=== PATIENT | male | born 1945 | race African-American/Black ===

== ENCOUNTER 2017-12-10 13:11 | Inpatient (IN) | payer MEDICARE, MEDICAID ==
[~2017-12-10] VITALS: Ht 180.3 cm; Wt 77.3 kg
[~2017-12-10 13:11] MED LIST: AMLO5TAB7 PO; AMOX-291 PO; CEFD300C37 PO; CYAN10005 PO; FAMO20TA7 PO; FLUT16SP NAS; IBUP-1222 PO; IBUP1TAB11 PO; LISI-167 PO; OMEP-110 PO; TAMS-11 PO; ZOLP-413 PO
[2017-12-10 13:53] LABS: BASOPHILS # (AUTO) 0.01 x10^3/uL (0-0.1); BASOPHILS % (AUTO) 0 % (0-1); EOSINOPHILS # (AUTO) 0.02 x10^3/uL (0-0.4); EOSINOPHILS % (AUTO) 0 % (1-7); LYMPHOCYTES # (AUTO) 0.27 x10^3/uL (1-3.4); LYMPHOCYTES % (AUTO) 4 % (22-44); MD NO; MEAN CORPUSCULAR HEMOGLOBIN 32.1 pg (27.5-34.5); MEAN CORPUSCULAR HGB CONC 34.1 g/dL (33.2-36.2); MEAN CORPUSCULAR VOLUME 94.3 fL (81-97); MEAN PLATELET VOLUME 8.2 fL (7.4-10.4); MONOCYTES # (AUTO) 0.28 x10^3/uL (0.2-0.8); MONOCYTES % (AUTO) 4 % (2-9); NEUTROPHILS # (AUTO) 6.43 x10^3/uL (1.8-6.8); NEUTROPHILS % (AUTO) 92 % (42-75); PLATELET COUNT 230 x10^3/uL (130-400); RED BLOOD COUNT 5.26 x10^6/uL (4.38-5.82); RED CELL DISTRIBUTION WIDTH 13.7 % (9.4-14.8)
[2017-12-10 14:02] LABS: ALANINE AMINOTRANSFERASE 25 U/L (12-78); ALBUMIN 3.7 g/dL (3.4-5.0); ANION GAP 5 mmol/L (5-15); CALCIUM 8.9 mg/dL (8.5-10.1); CHLORIDE 111 mmol/L (98-107)
[2017-12-10 14:05] LABS: ALKALINE PHOSPHATASE 106 U/L (45-117); BILIRUBIN,TOTAL 0.6 mg/dL (0.2-1.0); CREATININE 1.45 mg/dL (0.7-1.3); TOTAL PROTEIN 7.5 g/dL (6.4-8.2)
[2017-12-10] MEDS ORDERED: TAMS0.4C2 PO (15:45)
[2017-12-10 16:51] LABS: CULTURE INDICATED? YES; MICROSCOPIC INDICATED
[2017-12-10 17:16] LABS: CLOSTRIDIUM DIFFICILE ANTIGEN NEGATIVE; CLOSTRIDIUM DIFFICILE TOXIN NEGATIVE (Negative)
[2017-12-10] MEDS ORDERED: SODIUM CHLORIDE 0.9% 1,000 ML IV ONE (17:39)
[2017-12-10] MEDS ORDERED: SODIUM CHLORIDE 0.9% 1,000ML IVBOLUS ONE (18:00)
[2017-12-10] MEDS ORDERED: ONDANSETRON ODT 4 MG PO ONE (18:00)
[2017-12-10] MEDS ORDERED: SODIUM CHLORIDE FLUSH 10ML SYR IVF ONE (18:00)
[2017-12-10] MEDS ORDERED: SODIUM CHLORIDE FLUSH 10ML SYR IVF PRN (18:00)
[2017-12-10] MEDS ORDERED: CEFTRIAXONE 1,000 MG in SODIUM CHLORIDE 0.9% 50 ML IVPB ONE (18:00)
[2017-12-10] MEDS ORDERED: CEFTRIAXONE PMX 1GM/50ML 50 ML ONE (18:03)
[2017-12-10] MEDS ORDERED: ONDANSETRON ODT 4 MG ONE (18:03)
[2017-12-10] MEDS ORDERED: hydrALAzine 20 MG/ML, 1ML IVPush PRN (19:30)
[2017-12-10] MEDS ORDERED: ONDANSETRON ODT 4 MG PO PRN (19:30)
[2017-12-10] MEDS ORDERED: LIDODERM 5% PATCH TD PRN (19:30)
[2017-12-10] MEDS ORDERED: TEMAZEPAM 15 MG CAPSULE PO PRN (19:30)
[2017-12-10] MEDS ORDERED: DOCUSATE 100 MG CAPSULE PO PRN (19:30)
[2017-12-10 20:19] VITALS: BP 154/80
[2017-12-10] MEDS: SODIUM CHLORIDE 0.9% 1,000 ML IV SCH (20:26)
[2017-12-10] MEDS: ENOXAPARIN 40 MG/0.4 ML SQ SCH (20:26)
[2017-12-10] MEDS: ACETAMINOPHEN 325 MG TABLET PO PRN (20:32)
[2017-12-10] MEDS ORDERED: CEFTRIAXONE 1,000 MG in SODIUM CHLORIDE 0.9% 50 ML IVPB SCH (21:00)
[2017-12-10 21:07] VITALS: BP 154/80
[2017-12-11 01:26] VITALS: BP 105/60
[2017-12-11 05:43] LABS: ANION GAP 6 mmol/L (5-15); CALCIUM 8.1 mg/dL (8.5-10.1); CHLORIDE 113 mmol/L (98-107)
[2017-12-11 05:46] LABS: CREATININE 1.26 mg/dL (0.7-1.3)
[2017-12-11 05:47] LABS: BASOPHILS # (AUTO) 0.02 x10^3/uL (0-0.1); BASOPHILS % (AUTO) 1 % (0-1); EOSINOPHILS # (AUTO) 0.03 x10^3/uL (0-0.4); EOSINOPHILS % (AUTO) 1 % (1-7); LYMPHOCYTES # (AUTO) 0.56 x10^3/uL (1-3.4); LYMPHOCYTES % (AUTO) 15 % (22-44); MD NO; MEAN CORPUSCULAR HEMOGLOBIN 31.6 pg (27.5-34.5); MEAN CORPUSCULAR HGB CONC 33.8 g/dL (33.2-36.2); MEAN CORPUSCULAR VOLUME 93.6 fL (81-97); MEAN PLATELET VOLUME 8.7 fL (7.4-10.4); MONOCYTES % (AUTO) 11 % (2-9); NEUTROPHILS # (AUTO) 2.77 x10^3/uL (1.8-6.8); NEUTROPHILS % (AUTO) 73 % (42-75); PLATELET COUNT 188 x10^3/uL (130-400); RED BLOOD COUNT 4.23 x10^6/uL (4.38-5.82); RED CELL DISTRIBUTION WIDTH 13.6 % (9.4-14.8)
[2017-12-11] MEDS: SODIUM CHLORIDE 0.9% 1,000 ML IV SCH ×2 (05:55→16:53)
[2017-12-11 07:05] VITALS: BP 119/70
[2017-12-11] MEDS: TAMSULOSIN 0.4 MG CAP.ER.24H PO SCH (08:59)
[2017-12-11] MEDS: OMEPRAZOLE 20 MG CAPSULE.DR PO SCH (08:59)
[2017-12-11] MEDS: LISINOPRIL 10 MG TABLET PO SCH (09:00)
[2017-12-11] MEDS: AMLODIPINE 5 MG TABLET PO SCH (09:00)
[2017-12-11] MEDS: ACETAMINOPHEN 325 MG TABLET PO PRN (09:00)
[2017-12-11] MEDS: DOXYCYCLINE 100 MG in DEXTROSE 5% 250 ML IV SCH (12:54)
[2017-12-11 13:15] VITALS: BP 115/61
[2017-12-11] MEDS ORDERED: ALBUTEROL SULFATE 2.5 MG/3 ML NPPB PRN (13:30)
[2017-12-11] MEDS ORDERED: CEFTRIAXONE 1,000 MG IM SCH (17:00)
[2017-12-11 19:55] VITALS: BP 135/71
[2017-12-11] MEDS: ENOXAPARIN 40 MG/0.4 ML SQ SCH (20:07)
[2017-12-12] MEDS: SODIUM CHLORIDE 0.9% 1,000 ML IV SCH (00:19)
[2017-12-12] MEDS: DOXYCYCLINE 100 MG in DEXTROSE 5% 250 ML IV SCH ×2 (00:19→12:01)
[2017-12-12 01:31] VITALS: BP 131/66
[2017-12-12 05:07] LABS: ALBUMIN 2.6 g/dL (3.4-5.0); ANION GAP 7 mmol/L (5-15); CALCIUM 8.1 mg/dL (8.5-10.1); CHLORIDE 112 mmol/L (98-107)
[2017-12-12 05:13] LABS: ALANINE AMINOTRANSFERASE 15 U/L (12-78); ALKALINE PHOSPHATASE 73 U/L (45-117); BILIRUBIN,TOTAL 0.2 mg/dL (0.2-1.0); TOTAL PROTEIN 5.3 g/dL (6.4-8.2)
[2017-12-12 05:14] LABS: BASOPHILS # (AUTO) 0.01 x10^3/uL (0-0.1); BASOPHILS % (AUTO) 0 % (0-1); EOSINOPHILS # (AUTO) 0.11 x10^3/uL (0-0.4); EOSINOPHILS % (AUTO) 4 % (1-7); LYMPHOCYTES % (AUTO) 33 % (22-44); MD NO; MEAN CORPUSCULAR HGB CONC 34.3 g/dL (33.2-36.2); MEAN CORPUSCULAR VOLUME 93.2 fL (81-97); MEAN PLATELET VOLUME 8.5 fL (7.4-10.4); MONOCYTES # (AUTO) 0.61 x10^3/uL (0.2-0.8); MONOCYTES % (AUTO) 18 % (2-9); NEUTROPHILS # (AUTO) 1.48 x10^3/uL (1.8-6.8); NEUTROPHILS % (AUTO) 45 % (42-75); PLATELET COUNT 157 x10^3/uL (130-400); RED BLOOD COUNT 3.83 x10^6/uL (4.38-5.82); RED CELL DISTRIBUTION WIDTH 14.1 % (9.4-14.8)
[2017-12-12 07:05] VITALS: BP 180/65
[2017-12-12 07:57] VITALS: BP 149/78
[2017-12-12] MEDS: OMEPRAZOLE 20 MG CAPSULE.DR PO SCH (07:57)
[2017-12-12] MEDS: TAMSULOSIN 0.4 MG CAP.ER.24H PO SCH (07:57)
[2017-12-12] MEDS: AMLODIPINE 5 MG TABLET PO SCH (07:58)
[2017-12-12] MEDS: LISINOPRIL 10 MG TABLET PO SCH (07:58)
[2017-12-12] MEDS ORDERED: DOXY100T PO (12:26)
[2017-12-12] MEDS ORDERED: SULF1TAB24 PO (12:26)
[2017-12-12 12:45] VITALS: BP 144/70
[2017-12-12] MEDS ORDERED: SODIUM CHLORIDE 0.9% 1,000 ML IV SCH (19:29)
== END 2017-12-12 16:30 | disposition home or self-care (01) | DRG 689 ==
LOC: ED 17:37 → EDIP 17:59 → 3NW 19:30 → DCLOUNGE 12-12 16:21
PROVIDERS: ADMIT Internal Medicine; ATTEND Internal Medicine
DX: N39.0 Urinary tract infection, site not specified (principal); N17.0 Acute kidney failure with tubular necrosis; J44.0 Chronic obstructive pulmonary disease with (acute) lower respiratory infection; F17.210 Nicotine dependence, cigarettes, uncomplicated; I10 Essential (primary) hypertension; J20.9 Acute bronchitis, unspecified; E86.0 Dehydration; K52.9 Noninfective gastroenteritis and colitis, unspecified; K59.00 Constipation, unspecified; Z82.49 Family history of ischemic heart disease and other diseases of the circulatory system; Z82.5 Family history of asthma and other chronic lower respiratory diseases; Z83.3 Family history of diabetes mellitus
CPT/HCPCS: 36415; 71045; 80048; 80053; 81001; 83690; 85025; 87040; 87086; 87324; 89055; 93005; 94640; 96365; 99285; G0378; J0696; J1650; J7060; J7613; Q0162; J7030

== ENCOUNTER 2018-06-18 11:38 | Inpatient (IN) | payer MEDICARE, MEDICAID ==
[~2018-06-18] VITALS: Ht 180.3 cm; Wt 69.9 kg
[~2018-06-18 11:38] MED LIST changes: +AMLO-150 PO; -AMLO5TAB7 PO; +DOXY100T PO; +SULF1TAB24 PO; +TAMS0.4C2 PO
[2018-06-18] MEDS ORDERED: ASPIRIN 81 MG TABLET CHEW ONE (12:14)
--- NOTE | 2018-06-18 12:20 | NUR ---
Pt presents for increasing SOB, CP, and dizziness x several weeks. Much worse today. Cough with yellow sputum x 1 week.
[2018-06-18 12:28] LABS: BASOPHILS # (AUTO) 0.11 x10^3/uL (0-0.1); BASOPHILS % (AUTO) 2 % (0-1); EOSINOPHILS % (AUTO) 2 % (1-7); LYMPHOCYTES # (AUTO) 2.14 x10^3/uL (1-3.4); LYMPHOCYTES % (AUTO) 38 % (22-44); MD NO; MEAN CORPUSCULAR HEMOGLOBIN 32.4 pg (27.5-34.5); MEAN CORPUSCULAR VOLUME 95.4 fL (81-97); MEAN PLATELET VOLUME 8.6 fL (7.4-10.4); MONOCYTES # (AUTO) 0.58 x10^3/uL (0.2-0.8); MONOCYTES % (AUTO) 10 % (2-9); NEUTROPHILS # (AUTO) 2.69 x10^3/uL (1.8-6.8); NEUTROPHILS % (AUTO) 48 % (42-75); PLATELET COUNT 225 x10^3/uL (130-400); RED CELL DISTRIBUTION WIDTH 13.6 % (9.4-14.8)
[2018-06-18] MEDS ORDERED: NITROGLYCERIN SINGLE TAB 0.4 MG SL ONE (12:28)
[2018-06-18] MEDS ORDERED: ASPIRIN 81 MG TABLET CHEW PO ONE (12:30)
[2018-06-18] MEDS ORDERED: NITROGLYCERIN 0.4 MG BOTTLE (25 TABS) SL PRN ×2 (12:30→17:00)
[2018-06-18 12:42] LABS: ALBUMIN 4.1 g/dL (3.4-5.0); ANION GAP 5 mmol/L (5-15); CHLORIDE 111 mmol/L (98-107); CREATININE 1.43 mg/dL (0.7-1.3)
[2018-06-18 12:46] LABS: TROPONIN I < 0.015 ng/mL (0.000-0.045)
[2018-06-18] MEDS ORDERED: ACETAMINOPHEN 500 MG TABLET ONE (16:20)
[2018-06-18] MEDS ORDERED: SODIUM CHLORIDE 0.9% 1,000 ML IV SCH (16:39)
[2018-06-18] MEDS: NICOTINE 7 MG/24 HR PATCH.TD24 TD SCH (17:00)
[2018-06-18] MEDS ORDERED: ONDANSETRON 2MG/ML, 2ML IVPush PRN (17:00)
[2018-06-18] MEDS ORDERED: morphine SULFATE 10 MG/ML, 1ML IVPush PRN (17:00)
[2018-06-18] MEDS ORDERED: LABETALOL 5MG/ML, 20ML IVPush PRN (17:00)
[2018-06-18 17:26] LABS: INTERNATIONAL NORMALIZED RATIO 1.02 (0.93-1.1); PROTHROMBIN TIME 10.7 Seconds (9.6-11.5)
[2018-06-18] MEDS ORDERED: ACETAMINOPHEN 500 MG TABLET PO ONE (17:30)
[2018-06-18 17:31] LABS: TROPONIN I < 0.015 ng/mL (0.000-0.045)
[2018-06-18 18:53] LABS: RAPID INFLUENZA A Negative (Negative); RAPID INFLUENZA B Negative (Negative)
[2018-06-18 20:00] VITALS: BP 200/85
[2018-06-18] MEDS: AMOXICILLIN/CLAV 875-125MG TABLET PO SCH (20:26)
[2018-06-18] MEDS: SODIUM CHLORIDE 0.9% 1,000 ML IV SCH (20:27)
[2018-06-18] MEDS ORDERED: ATORVASTATIN 80 MG TABLET PO SCH (21:00)
[2018-06-18] MEDS ORDERED: DIPHENHYDRAMINE 25 MG CAPSULE ONE (22:20)
[2018-06-18] MEDS ORDERED: DIPHENHYDRAMINE 25 MG CAPSULE PO PRN (22:30)
[2018-06-18 22:32] VITALS: BP 200/85
[2018-06-18 22:42] VITALS: BP 124/67
[2018-06-18] MEDS: ACETAMINOPHEN 325 MG TABLET PO PRN (22:43)
[2018-06-18 23:13] LABS: TROPONIN I < 0.015 ng/mL (0.000-0.045)
[2018-06-19 01:16] VITALS: BP 111/67
[2018-06-19] MEDS: SODIUM CHLORIDE 0.9% 1,000 ML IV SCH ×2 (05:40→16:30)
[2018-06-19] MEDS: ACETAMINOPHEN 325 MG TABLET PO PRN (05:40)
[2018-06-19 05:48] LABS: BASOPHILS # (AUTO) 0.08 x10^3/uL (0-0.1); BASOPHILS % (AUTO) 1 % (0-1); EOSINOPHILS # (AUTO) 0.14 x10^3/uL (0-0.4); EOSINOPHILS % (AUTO) 3 % (1-7); LYMPHOCYTES # (AUTO) 1.88 x10^3/uL (1-3.4); LYMPHOCYTES % (AUTO) 36 % (22-44); MD NO; MEAN CORPUSCULAR HEMOGLOBIN 32.3 pg (27.5-34.5); MEAN CORPUSCULAR HGB CONC 34.2 g/dL (33.2-36.2); MEAN CORPUSCULAR VOLUME 94.6 fL (81-97); MEAN PLATELET VOLUME 8.8 fL (7.4-10.4); MONOCYTES # (AUTO) 0.54 x10^3/uL (0.2-0.8); MONOCYTES % (AUTO) 10 % (2-9); NEUTROPHILS # (AUTO) 2.63 x10^3/uL (1.8-6.8); NEUTROPHILS % (AUTO) 50 % (42-75); PLATELET COUNT 194 x10^3/uL (130-400); RED BLOOD COUNT 4.67 x10^6/uL (4.38-5.82); RED CELL DISTRIBUTION WIDTH 13.4 % (9.4-14.8)
[2018-06-19 05:49] LABS: CULTURE INDICATED? YES; MICROSCOPIC INDICATED
[2018-06-19 05:57] LABS: TROPONIN I < 0.015 ng/mL (0.000-0.045)
[2018-06-19 07:07] VITALS: BP 136/80
[2018-06-19] MEDS ORDERED: OMEPRAZOLE 20 MG CAPSULE.DR PO SCH (07:30)
[2018-06-19] MEDS: AMOXICILLIN/CLAV 875-125MG TABLET PO SCH (08:54)
[2018-06-19] MEDS ORDERED: AMLODIPINE 5 MG TABLET PO SCH (09:00)
[2018-06-19] MEDS ORDERED: TAMSULOSIN 0.4 MG CAP.ER.24H PO SCH (09:00)
[2018-06-19] MEDS ORDERED: ASPIRIN 81 MG TABLET CHEW PO SCH (09:00)
[2018-06-19] MEDS ORDERED: LISINOPRIL 10 MG TABLET PO SCH (09:00)
[2018-06-19] MEDS ORDERED: ASPI-515 PO (11:28)
[2018-06-19] MEDS ORDERED: LISI-167 PO (11:28)
[2018-06-19] MEDS ORDERED: CEFD300C37 PO (11:32)
[2018-06-19] MEDS ORDERED: SODIUM CHLORIDE 0.9% 1,000 ML IV SCH (16:39)
[2018-06-19] MEDS: NICOTINE 7 MG/24 HR PATCH.TD24 TD SCH (17:00)
== END 2018-06-19 18:34 | disposition home or self-care (01) | DRG 302 ==
LOC: ED 13:59 → EDIP 14:00 → ED 14:14 → 5SO 19:51
PROVIDERS: ADMIT Internal Medicine; ATTEND Internal Medicine
DX: I25.10 Atherosclerotic heart disease of native coronary artery without angina pectoris (principal); N17.0 Acute kidney failure with tubular necrosis; N39.0 Urinary tract infection, site not specified; J20.9 Acute bronchitis, unspecified; I12.9 Hypertensive chronic kidney disease with stage 1 through stage 4 chronic kidney disease, or unspecified chronic kidney disease; N18.9 Chronic kidney disease, unspecified; K29.70 Gastritis, unspecified, without bleeding; F17.210 Nicotine dependence, cigarettes, uncomplicated; Z91.19 Patient's noncompliance with other medical treatment and regimen; Z87.440 Personal history of urinary (tract) infections
CPT/HCPCS: 36415; 71045; 80048; 81001; 82040; 83735; 83880; 84100; 84484; 85025; 85379; 85610; 87070; 87086; 87205; 87400; 93005; 93306; G0378; J7030; Q0163

== ENCOUNTER 2018-08-20 10:45 | Observation (INO) | payer MEDICARE, MEDICAID ==
[~2018-08-20] VITALS: Ht 180.3 cm; Wt 70.9 kg
[~2018-08-20 10:45] MED LIST changes: +ASPI-515 PO
--- NOTE | 2018-08-20 11:12 | NUR ---
PT TO ED FOR SYNCOPAL EPISODE TODAY WHEN HE BENT OVER TO DRY OFF LEGS AFTER SHOWER. PT DENIES HITTING HEAD. PT REMEMBERS WAKING UP SITTING AGAINST BATHTUB. PT CONNECTED TO MONITORS. VSS. AWAITING EDMD ASSESSMENT.
[2018-08-20] MEDS ORDERED: SODIUM CHLORIDE FLUSH 10ML SYR IVF ONE (11:30)
[2018-08-20 11:38] LABS: BASOPHILS # (AUTO) 0.08 x10^3/uL (0-0.1); BASOPHILS % (AUTO) 2 % (0-1); EOSINOPHILS # (AUTO) 0.09 x10^3/uL (0-0.4); EOSINOPHILS % (AUTO) 2 % (1-7); LYMPHOCYTES # (AUTO) 1.57 x10^3/uL (1-3.4); LYMPHOCYTES % (AUTO) 35 % (22-44); MD NO; MEAN CORPUSCULAR HEMOGLOBIN 32.5 pg (27.5-34.5); MEAN CORPUSCULAR HGB CONC 33.5 g/dL (33.2-36.2); MEAN CORPUSCULAR VOLUME 96.9 fL (81-97); MEAN PLATELET VOLUME 8.8 fL (7.4-10.4); MONOCYTES # (AUTO) 0.44 x10^3/uL (0.2-0.8); MONOCYTES % (AUTO) 10 % (2-9); NEUTROPHILS # (AUTO) 2.26 x10^3/uL (1.8-6.8); NEUTROPHILS % (AUTO) 51 % (42-75); PLATELET COUNT 205 x10^3/uL (130-400)
--- NOTE | 2018-08-20 11:42 | NUR ---
PT RESTING IN ROOM. VSS. IV ESTABLISHED. AWAITING RESULTS. CALL LIGHT WITHIN REACH.
[2018-08-20 11:49] LABS: ALBUMIN 3.8 g/dL (3.4-5.0); ANION GAP 6 mmol/L (5-15); CALCIUM 8.8 mg/dL (8.5-10.1); CHLORIDE 111 mmol/L (98-107); CREATININE 1.43 mg/dL (0.7-1.3); INTERNATIONAL NORMALIZED RATIO 0.98 (0.93-1.1); PROTHROMBIN TIME 10.3 Seconds (9.6-11.5)
[2018-08-20 11:53] LABS: TROPONIN I < 0.015 ng/mL (0.000-0.045)
--- NOTE | 2018-08-20 12:14 | NUR ---
all results back at this time. chart up for recheck.
--- NOTE | 2018-08-20 12:22 | NUR ---
PT RESTING IN ROOM. VSS. NO NEEDS EXPRESSED. CALL LIGHT WITHIN REACH. AWAITING RECHECK.
--- NOTE | 2018-08-20 12:25 | NUR ---
edmd to bs to update on poc. plan to admit.
[2018-08-20] MEDS ORDERED: HEPARIN 5,000 UNITS/ML, 1ML ONE (13:27)
[2018-08-20] MEDS ORDERED: ACETAMINOPHEN 325 MG TABLET PO PRN (13:30)
[2018-08-20] MEDS ORDERED: LABETALOL 5MG/ML, 20ML IVPush PRN (13:30)
[2018-08-20] MEDS ORDERED: morphine SULFATE 10 MG/ML, 1ML IVPush PRN (13:30)
[2018-08-20] MEDS ORDERED: OXYcodone IR 5MG TABLET PO PRN (13:30)
[2018-08-20] MEDS ORDERED: NITROGLYCERIN 0.4 MG/SPRAY SL PRN (13:30)
[2018-08-20] MEDS ORDERED: NITROGLYCERIN 0.4 MG BOTTLE (25 TABS) SL PRN ×2 (13:30)
[2018-08-20] MEDS: SODIUM CHLORIDE 0.9% 1,000 ML IV SCH ×2 (13:31→23:28)
[2018-08-20] MEDS ORDERED: hydrALAzine 20 MG/ML, 1ML ONE (13:31)
[2018-08-20] MEDS: hydrALAzine 20 MG/ML, 1ML IVPush PRN (13:32)
[2018-08-20] MEDS: HEPARIN 5,000 UNITS/ML, 1ML SQ SCH ×2 (13:32→21:21)
--- NOTE | 2018-08-20 13:35 | NUR ---
PT RESTING IN ROOM. HTN, 182/86. ALL OTHER VSS ON RA. PT MEDICATED PER MAR. IVF STARTED. PT MEDICATED FOR HTN. PLAN TO ADMIT. AWAITING ROOM ASSIGNMENT.
[2018-08-20] MEDS ORDERED: ALBUTEROL/IPRATROPIUM 2.5MG/0.5MG, 3 ML ONE (13:45)
[2018-08-20] MEDS ORDERED: ALBUTEROL/IPRATROPIUM 2.5MG/0.5MG, 3 ML NPPB PRN (14:30)
[2018-08-20 14:41] VITALS: BP 157/73
[2018-08-20 19:16] LABS: MICROSCOPIC AUTO
[2018-08-20 19:22] LABS: CULTURE INDICATED? YES
[2018-08-20 19:28] VITALS: BP 168/80
[2018-08-21] VITALS (7 sets, daily range): BP systolic 159–195; BP diastolic 67–105
[2018-08-21 00:01] LABS: TROPONIN I 0.021 ng/mL (0.000-0.045)
[2018-08-21 04:41] LABS: ANION GAP 6 mmol/L (5-15); CALCIUM 8.6 mg/dL (8.5-10.1); CHLORIDE 113 mmol/L (98-107)
[2018-08-21 04:50] LABS: THYROID STIMULATING HORMONE 0.839 mIU/L (0.358-3.740)
[2018-08-21] MEDS: HEPARIN 5,000 UNITS/ML, 1ML SQ SCH ×3 (05:21→20:18)
[2018-08-21 06:39] LABS: MEAN CORPUSCULAR HEMOGLOBIN 32.1 pg (27.5-34.5); MEAN CORPUSCULAR HGB CONC 32.9 g/dL (33.2-36.2); MEAN CORPUSCULAR VOLUME 97.4 fL (81-97); MEAN PLATELET VOLUME 8.5 fL (7.4-10.4); PLATELET COUNT 181 x10^3/uL (130-400); RED BLOOD COUNT 4.55 x10^6/uL (4.38-5.82)
[2018-08-21 08:00] LABS: MD SCAN
[2018-08-21 08:02] LABS: BASOPHILS # (AUTO) 0.06 x10^3/uL (0-0.1); BASOPHILS % (AUTO) 1 % (0-1); EOSINOPHILS # (AUTO) 0.11 x10^3/uL (0-0.4); EOSINOPHILS % (AUTO) 2 % (1-7); LYMPHOCYTES # (AUTO) 1.69 x10^3/uL (1-3.4); LYMPHOCYTES % (AUTO) 30 % (22-44); MONOCYTES # (AUTO) 0.52 x10^3/uL (0.2-0.8); MONOCYTES % (AUTO) 9 % (2-9); NEUTROPHILS % (AUTO) 58 % (42-75)
[2018-08-21] MEDS: NICOTINE 14MG/24 HR PATCH.TD24 TD SCH (08:23)
[2018-08-21] MEDS: SODIUM CHLORIDE 0.9% 1,000 ML IV SCH (13:49)
[2018-08-21] MEDS: hydrALAzine 20 MG/ML, 1ML IVPush PRN (16:51)
[2018-08-21] MEDS: CYANOCOBALAMIN 1,000 MCG/ML, 1ML IM SCH (17:53)
[2018-08-21] MEDS: LISINOPRIL 10 MG TABLET PO SCH (20:18)
[2018-08-22] MEDS: SODIUM CHLORIDE 0.9% 1,000 ML IV SCH (00:18)
[2018-08-22 01:53] VITALS: BP 162/87
[2018-08-22 05:23] LABS: ANION GAP 10 mmol/L (5-15); CALCIUM 8.5 mg/dL (8.5-10.1); CHLORIDE 111 mmol/L (98-107); CREATININE 1.07 mg/dL (0.7-1.3)
[2018-08-22] MEDS: HEPARIN 5,000 UNITS/ML, 1ML SQ SCH ×2 (06:03→14:28)
[2018-08-22 08:00] VITALS: BP 144/63
[2018-08-22] MEDS: CYANOCOBALAMIN 1,000 MCG/ML, 1ML IM SCH (09:35)
[2018-08-22] MEDS: LISINOPRIL 10 MG TABLET PO SCH (09:35)
[2018-08-22] MEDS: NICOTINE 14MG/24 HR PATCH.TD24 TD SCH (09:35)
[2018-08-22] MEDS ORDERED: TAMSULOSIN 0.4 MG CAP.ER.24H PO SCH (11:00)
[2018-08-22] MEDS ORDERED: FLUTICASONE NASAL SPRAY 16GM NAS SCH (11:00)
[2018-08-22] MEDS ORDERED: SODIUM CHLORIDE NASAL SPRAY 45ML BOTTLE NAS SCH (11:00)
[2018-08-22] MEDS ORDERED: AMOXICILLIN 500 MG CAPSULE PO SCH (11:00)
[2018-08-22] MEDS ORDERED: CYAN10002 IM (15:32)
[2018-08-22] MEDS ORDERED: TAMS-11 PO (15:32)
[2018-08-22] MEDS ORDERED: AMLO-150 PO (15:32)
[2018-08-22] MEDS ORDERED: LISI-167 PO (15:32)
[2018-08-22] MEDS ORDERED: AMOX-291 PO (15:32)
[2018-08-22] MEDS ORDERED: SODI44SP NAS (15:32)
[2018-08-22] MEDS ORDERED: FLUT16SP NAS (15:32)
[2018-08-22] MEDS ORDERED: AMLODIPINE 5 MG TABLET PO SCH (21:00)
== END 2018-08-22 17:18 | disposition home or self-care (01) ==
LOC: ED 13:08 → EDIP 13:11 → 4WST 14:08 → DCLOUNGE 08-22 17:05
PROVIDERS: ADMIT Internal Medicine; ATTEND Internal Medicine
DX: R55 Syncope and collapse (principal); R53.83 Other fatigue; R51 Headache; R42 Dizziness and giddiness; R07.89 Other chest pain; I10 Essential (primary) hypertension; R06.00 Dyspnea, unspecified; R31.0 Gross hematuria; D75.89 Other specified diseases of blood and blood-forming organs; E53.8 Deficiency of other specified B group vitamins; K86.89 Other specified diseases of pancreas; R33.8 Other retention of urine; N17.9 Acute kidney failure, unspecified; J44.9 Chronic obstructive pulmonary disease, unspecified; N40.1 Benign prostatic hyperplasia with lower urinary tract symptoms; D35.00 Benign neoplasm of unspecified adrenal gland; I27.20 Pulmonary hypertension, unspecified; F17.210 Nicotine dependence, cigarettes, uncomplicated; Z91.14 Patient's other noncompliance with medication regimen
CPT/HCPCS: 36415; 70450; 71045; 76770; 78582; 80048; 81001; 82040; 82533; 82607; 83735; 84443; 84484; 85025; 85610; 85730; 87086; 93005; 93308; 93321; 93325; 96361; 96372; 96374; 96376; 97162; 97166; 99284; A9540; A9558; C9898; G0378; J0360; J1644; J3420; J7030

== ENCOUNTER 2018-09-29 10:38 | Emergency (ER) | payer MEDICARE, MEDICAID ==
[~2018-09-29] VITALS: Ht 180.3 cm; Wt 71.7 kg
[~2018-09-29 10:38] MED LIST changes: +CYAN10002 IM; -FLUT16SP NAS; +FLUT16SP24 NAS; +SODI44SP NAS
--- NOTE | 2018-09-29 11:17 | NUR ---
[employer] MANAGER: PT TO ROOM FROM [facility]
[2018-09-29 12:00] LABS: BASOPHILS # (AUTO) 0.13 x10^3/uL (0-0.1); BASOPHILS % (AUTO) 3 % (0-1); EOSINOPHILS # (AUTO) 0.17 x10^3/uL (0-0.4); EOSINOPHILS % (AUTO) 4 % (1-7); LYMPHOCYTES # (AUTO) 1.41 x10^3/uL (1-3.4); LYMPHOCYTES % (AUTO) 34 % (22-44); MD NO; MEAN CORPUSCULAR HEMOGLOBIN 32.9 pg (27.5-34.5); MEAN CORPUSCULAR HGB CONC 33.5 g/dL (33.2-36.2); MEAN CORPUSCULAR VOLUME 98.1 fL (81-97); MEAN PLATELET VOLUME 8.6 fL (7.4-10.4); MONOCYTES % (AUTO) 12 % (2-9); NEUTROPHILS # (AUTO) 1.89 x10^3/uL (1.8-6.8); NEUTROPHILS % (AUTO) 46 % (42-75); PLATELET COUNT 182 x10^3/uL (130-400); RED BLOOD COUNT 4.65 x10^6/uL (4.38-5.82); RED CELL DISTRIBUTION WIDTH 13.4 % (9.4-14.8)
[2018-09-29] MEDS ORDERED: SODIUM CHLORIDE FLUSH 10ML SYR IVF ONE (12:00)
--- NOTE | 2018-09-29 12:05 | NUR ---
ASSUMED CARE OF PT AT THIS TIME. THIS IS A 72 YO MALE WHO PRESENTS TO THE ER C/O SYNCOPAL EPISODES X 2 YESTERDAY AND HITTING HEAD ON COFFEE TABLE WITH THE SECOND EPISODE. PT CURRENTLY DENIES DIZZINESS OR CP. PT AO X 4. SKIN WARM AND DRY. RESP EVEN AND UNLABORED. PT ON CONT BP, CARDIAC AND O2 MONITORS. BBB NOTED ON CRESTER, RATE 50'S-60'S. PT DENIES PAIN/NEEDS AT THIS TIME. CALL LIGHT WITHIN REACH. WILL CONT TO MONITOR PT.
[2018-09-29 12:09] LABS: ALBUMIN 3.8 g/dL (3.4-5.0); ANION GAP 4 mmol/L (5-15); CALCIUM 9.1 mg/dL (8.5-10.1); CHLORIDE 113 mmol/L (98-107); CREATININE 1.41 mg/dL (0.7-1.3)
[2018-09-29 12:13] LABS: TROPONIN I < 0.015 ng/mL (0.000-0.045)
--- NOTE | 2018-09-29 13:11 | NUR ---
PT CURRENTLY RESTING ON GURNEY. NAD NOTED. SKIN WARM AND DRY. RESP EVEN AND UNLABORED. PT AWARE THAT WE ARE WAITING FOR LAB/IMAGING RESULTS. CALL LIGHT WITHIN REACH. WILL CONT TO MONITOR PT.
--- NOTE | 2018-09-29 14:33 | NUR ---
PT STEADY UPON AMBULATION AROUND UNIT AND TO RESTROOM. PT DENIES DIZZINESS OR SOB. PT AO X 4. SKIN WARM AND DRY. RESP EVEN AND UNLABORED. PT ASSISTED BACK TO [place]. PT ON CONT BP, CARDIAC AND O2 MONITORS. CALL LIGHT WITHIN REACH. WILL CONT TO MONITOR PT.
[2018-09-29 14:59] VITALS: BP 158/79
== END 2018-09-29 15:03 | disposition home or self-care (01) ==
LOC: ED 11:54
DX: R55 Syncope and collapse (principal); I10 Essential (primary) hypertension; F17.210 Nicotine dependence, cigarettes, uncomplicated
CPT/HCPCS: 36415; 71045; 80048; 82040; 84484; 85025; 93005; 99284

== ENCOUNTER 2018-10-22 13:42 | Inpatient (IN) | payer MEDICARE, MEDICAID ==
[~2018-10-22] VITALS: Ht 180.3 cm; Wt 75.2 kg
[2018-11-03 07:40] VITALS: BP 158/80
== END 2018-11-03 13:28 | disposition home or self-care (01) | DRG 908 ==
LOC: ED 16:04 → EDIP 17:28 → 4EST 18:20 → 5SO 10-25 12:57
PROVIDERS: ADMIT Internal Medicine; ATTEND Internal Medicine
PROC: 0T9B70Z Drainage of Bladder with Drainage Device, Via Natural or Artificial Opening (ICD-10-PCS; 2018-10-22)
PROC: 4A023N7 Measurement of Cardiac Sampling and Pressure, Left Heart, Percutaneous Approach (ICD-10-PCS; 2018-10-25)
PROC: B2111ZZ Fluoroscopy of Multiple Coronary Arteries using Low Osmolar Contrast (ICD-10-PCS; 2018-10-25)
PROC: B2151ZZ Fluoroscopy of Left Heart using Low Osmolar Contrast (ICD-10-PCS; 2018-10-25)
PROC: 02H63JZ Insertion of Pacemaker Lead into Right Atrium, Percutaneous Approach (ICD-10-PCS; principal; 2018-10-28)
PROC: 0JH606Z Insertion of Pacemaker, Dual Chamber into Chest Subcutaneous Tissue and Fascia, Open Approach (ICD-10-PCS; 2018-10-28)
PROC: 02HK3JZ Insertion of Pacemaker Lead into Right Ventricle, Percutaneous Approach (ICD-10-PCS; 2018-10-28)
PROC: 02WA3MZ Revision of Cardiac Lead in Heart, Percutaneous Approach (ICD-10-PCS; 2018-10-29)
PROC: 0W9930Z Drainage of Right Pleural Cavity with Drainage Device, Percutaneous Approach (ICD-10-PCS; 2018-10-30)
DX: K91.872 Postprocedural seroma of a digestive system organ or structure following a digestive system procedure (principal); I50.30 Unspecified diastolic (congestive) heart failure; J94.8 Other specified pleural conditions; J93.9 Pneumothorax, unspecified; I25.119 Atherosclerotic heart disease of native coronary artery with unspecified angina pectoris; I45.10 Unspecified right bundle-branch block; I49.8 Other specified cardiac arrhythmias; G47.00 Insomnia, unspecified; R33.8 Other retention of urine; Y92.098 Other place in other non-institutional residence as the place of occurrence of the external cause; N50.1 Vascular disorders of male genital organs; D35.00 Benign neoplasm of unspecified adrenal gland; F17.210 Nicotine dependence, cigarettes, uncomplicated; G89.18 Other acute postprocedural pain; I11.0 Hypertensive heart disease with heart failure; J44.9 Chronic obstructive pulmonary disease, unspecified; J98.2 Interstitial emphysema; K86.89 Other specified diseases of pancreas; N30.90 Cystitis, unspecified without hematuria; K83.8 Other specified diseases of biliary tract; R33.9 Retention of urine, unspecified; N40.1 Benign prostatic hyperplasia with lower urinary tract symptoms; Z83.3 Family history of diabetes mellitus; Z91.19 Patient's noncompliance with other medical treatment and regimen; Z79.899 Other long term (current) drug therapy; Z82.5 Family history of asthma and other chronic lower respiratory diseases; Z84.89 Family history of other specified conditions; Z82.49 Family history of ischemic heart disease and other diseases of the circulatory system; Z71.6 Tobacco abuse counseling
CPT/HCPCS: 32557; 33208; 33215; 36415; 70553; 71045; 71046; 71275; 74022; 74174; 74176; 74177; 76857; 80048; 80053; 80061; 81001; 82040; 82088; 82533; 83690; 83735; 83835; 83880; 84484; 85025; 87086; 93005; 93458; 96374; 96375; 99156; 99157; 99285; A9585; C1760; C1769; C1779; C1785; C1892; C1894; G0378; J0583; J0690; J0696; J1170; J1644; J1650; J1885; J2250; J2405; J3010; Q0162; Q9967; C1729; J2270; J2310; J7030

== ENCOUNTER 2019-01-07 08:49 | Inpatient (IN) | payer MEDICAID, MEDICARE ==
[~2019-01-07] VITALS: Ht 180.3 cm; Wt 68.7 kg
[~2019-01-07 08:49] MED LIST changes: +CYAN-27 PO; -CYAN10005 PO
[2019-01-07] MEDS ORDERED: ONDANSETRON 2MG/ML, 2ML ONE (09:19)
[2019-01-07] MEDS ORDERED: ASPIRIN 81 MG TABLET CHEW ONE (09:19)
[2019-01-07] MEDS ORDERED: MORPHINE SULFATE 4 MG/ML, 1ML ONE ×2 (09:20→10:22)
[2019-01-07] MEDS: MORPHINE SULFATE 4 MG/ML, 1ML IVPush PRN ×2 (09:22→10:23)
[2019-01-07 09:29] LABS: BASOPHILS # (AUTO) 0.03 x10^3/uL (0-0.1); BASOPHILS % (AUTO) 1 % (0-1); EOSINOPHILS # (AUTO) 0.09 x10^3/uL (0-0.4); EOSINOPHILS % (AUTO) 2 % (1-7); LYMPHOCYTES # (AUTO) 1.56 x10^3/uL (1-3.4); LYMPHOCYTES % (AUTO) 32 % (22-44); MD NO; MEAN CORPUSCULAR HEMOGLOBIN 32.4 pg (27.5-34.5); MEAN CORPUSCULAR HGB CONC 33.5 g/dL (33.2-36.2); MEAN CORPUSCULAR VOLUME 96.7 fL (81-97); MEAN PLATELET VOLUME 8.2 fL (7.4-10.4); MONOCYTES # (AUTO) 0.55 x10^3/uL (0.2-0.8); MONOCYTES % (AUTO) 12 % (2-9); NEUTROPHILS # (AUTO) 2.57 x10^3/uL (1.8-6.8); NEUTROPHILS % (AUTO) 54 % (42-75); PLATELET COUNT 165 x10^3/uL (130-400); RED BLOOD COUNT 4.86 x10^6/uL (4.38-5.82); RED CELL DISTRIBUTION WIDTH 14.6 % (9.4-14.8)
[2019-01-07] MEDS ORDERED: SODIUM CHLORIDE FLUSH 10ML SYR IVF ONE (09:30)
[2019-01-07] MEDS ORDERED: ASPIRIN 81 MG TABLET CHEW PO ONE (09:30)
[2019-01-07] MEDS ORDERED: ONDANSETRON 2MG/ML, 2ML IVPush ONE (09:30)
--- NOTE | 2019-01-07 09:32 | NUR ---
PT TO ED WITH SOB/CP X5D, PT HAD RECENT HERNIA SURGERY IN 09/2018 AND PACEMAKER PLACEMENT. IV ESTABLISHED AND PT MEDICATED PER MAY. PT ON MONITIR, CALL LIGHT WITHIN REACH. LABS/RAD PENDING.
[2019-01-07 09:40] LABS: ALBUMIN 3.9 g/dL (3.4-5.0); ANION GAP 5 mmol/L (5-15); CALCIUM 8.6 mg/dL (8.5-10.1); CHLORIDE 109 mmol/L (98-107); CREATININE 1.32 mg/dL (0.7-1.3)
[2019-01-07 09:44] LABS: TROPONIN I < 0.015 ng/mL (0.000-0.045)
--- NOTE | 2019-01-07 10:18 | NUR ---
PT RESTING IN GURNEY, STATES HE FEELS BETTER AFTER MEDICATION. CTA ORDERED, PENDING
--- NOTE | 2019-01-07 10:48 | NUR ---
PT RETURNED FROM CT
[2019-01-07] MEDS ORDERED: OMNIPAQUE 350 MG/ML, 100ML BOTTLE ONE (10:56)
--- NOTE | 2019-01-07 11:50 | NUR ---
PT TO BE ADMITTED, AWAITNG ADMIT ORDERS. NO NEEDS AT THIS TIME, STATES RELIEF FROM PAIN AFTER MEDICATION.
[2019-01-07] MEDS: SODIUM CHLORIDE 0.9% 1,000 ML IV SCH ×2 (12:34→15:39)
--- NOTE | 2019-01-07 12:40 | NUR ---
ADMITTING MD AT BEDSIDE. PT RESTING IN [facility] ON MONITOR, NO NEEDS AT THIS TIME. AWAITING BED ASSIGNMENT
[2019-01-07] MEDS ORDERED: BISACODYL 10 MG SUPP PR PRN (13:00)
[2019-01-07] MEDS ORDERED: NITROGLYCERIN 0.4 MG BOTTLE (25 TABS) SL PRN (13:00)
[2019-01-07] MEDS ORDERED: POLYETHYLENE GLYCOL 17 GM PACKET PO PRN (13:00)
[2019-01-07] MEDS ORDERED: ONDANSETRON ODT 4 MG PO PRN (13:00)
[2019-01-07] MEDS ORDERED: ONDANSETRON 2MG/ML, 2ML IVPush PRN (13:00)
[2019-01-07] MEDS ORDERED: hydrALAzine 20 MG/ML, 1ML IVPush PRN (13:00)
[2019-01-07] MEDS ORDERED: LABETALOL 5MG/ML, 20ML IVPush PRN (13:00)
--- NOTE | 2019-01-07 13:42 | NUR ---
IVF STARTED AND PT GIVEN COFFEE PER REQUEST. PT ON TELE HOLD IN ED. DIET TRAY ORDERED.
--- NOTE | 2019-01-07 14:10 | NUR ---
TASK RN: PT RESTING ON GURNEY. NADN. LYNN.
--- NOTE | 2019-01-07 14:32 | NUR ---
TASK RN: REPORT GIVEN TO REKHA RAI RN. ALL QUESTIONS ANSWERED. AWAITING PT TRANSPORT.
[2019-01-07 14:57] VITALS: BP 173/99
[2019-01-07 15:27] LABS: TROPONIN I < 0.015 ng/mL (0.000-0.045)
[2019-01-07] MEDS: TAMSULOSIN 0.4 MG CAP.ER.24H PO SCH (15:38)
[2019-01-07] MEDS: HEPARIN 5,000 UNITS/ML, 1ML SQ SCH ×2 (15:38→23:35)
[2019-01-07] MEDS ORDERED: ALBUTEROL SULFATE 2.5 MG/3 ML NPPB SCH (16:30)
[2019-01-07 16:34] VITALS: BP 148/87
[2019-01-07] MEDS: ACETAMINOPHEN 325 MG TABLET PO PRN ×2 (16:35→21:06)
[2019-01-07 18:49] VITALS: BP 119/71
[2019-01-07] MEDS: ALBUTEROL SULFATE 2.5 MG/3 ML NPPB SCH (20:37)
[2019-01-07] MEDS: BUDESONIDE 0.5 MG/2 ML INHA NPPB SCH (20:37)
[2019-01-07] MEDS: DOCUSATE 100 MG CAPSULE PO SCH (20:55)
[2019-01-07] MEDS: AMLODIPINE 5 MG TABLET PO SCH (21:06)
[2019-01-07 21:33] LABS: CULTURE INDICATED? YES; MICROSCOPIC INDICATED
[2019-01-07 21:53] LABS: TROPONIN I 0.017 ng/mL (0.000-0.045)
[2019-01-08 00:44] VITALS: BP 125/76
[2019-01-08] MEDS: ALBUTEROL SULFATE 2.5 MG/3 ML NPPB SCH ×4 (03:00→21:00)
[2019-01-08 06:04] LABS: BASOPHILS # (AUTO) 0.09 x10^3/uL (0-0.1); BASOPHILS % (AUTO) 2 % (0-1); EOSINOPHILS # (AUTO) 0.08 x10^3/uL (0-0.4); EOSINOPHILS % (AUTO) 2 % (1-7); LYMPHOCYTES % (AUTO) 32 % (22-44); MD NO; MEAN CORPUSCULAR HEMOGLOBIN 32.9 pg (27.5-34.5); MEAN CORPUSCULAR HGB CONC 33.4 g/dL (33.2-36.2); MEAN CORPUSCULAR VOLUME 98.4 fL (81-97); MONOCYTES % (AUTO) 10 % (2-9); NEUTROPHILS # (AUTO) 2.67 x10^3/uL (1.8-6.8); NEUTROPHILS % (AUTO) 54 % (42-75); PLATELET COUNT 149 x10^3/uL (130-400); RED BLOOD COUNT 4.43 x10^6/uL (4.38-5.82); RED CELL DISTRIBUTION WIDTH 14.5 % (9.4-14.8)
[2019-01-08 06:12] LABS: CHLORIDE 110 mmol/L (98-107)
[2019-01-08 06:27] LABS: ANION GAP 5 mmol/L (5-15); CALCIUM 8.9 mg/dL (8.5-10.1); CREATININE 1.19 mg/dL (0.7-1.3)
[2019-01-08 07:56] VITALS: BP 157/84
[2019-01-08] MEDS: DOCUSATE 100 MG CAPSULE PO SCH ×2 (08:21→20:43)
[2019-01-08] MEDS: TAMSULOSIN 0.4 MG CAP.ER.24H PO SCH (08:21)
[2019-01-08] MEDS: AMLODIPINE 5 MG TABLET PO SCH ×2 (08:21→20:43)
[2019-01-08] MEDS: HEPARIN 5,000 UNITS/ML, 1ML SQ SCH ×3 (08:21→23:30)
[2019-01-08] MEDS: ASPIRIN 81 MG TABLET EC PO SCH (08:22)
[2019-01-08] MEDS: ACETAMINOPHEN 325 MG TABLET PO PRN ×2 (09:17→20:43)
[2019-01-08] MEDS: BUDESONIDE 0.5 MG/2 ML INHA NPPB SCH ×2 (09:45→21:00)
[2019-01-08 12:44] VITALS: BP 131/76
[2019-01-08 19:01] VITALS: BP 149/74
[2019-01-08] MEDS: ATORVASTATIN 40 MG TABLET PO SCH (20:43)
[2019-01-09 00:38] VITALS: BP 153/81
[2019-01-09] MEDS: ACETAMINOPHEN 325 MG TABLET PO PRN ×3 (00:51→21:07)
[2019-01-09] MEDS: ALBUTEROL SULFATE 2.5 MG/3 ML NPPB SCH ×4 (03:00→21:30)
[2019-01-09 07:05] VITALS: BP 153/84
[2019-01-09] MEDS: TAMSULOSIN 0.4 MG CAP.ER.24H PO SCH (09:35)
[2019-01-09] MEDS: AMLODIPINE 5 MG TABLET PO SCH ×2 (09:35→21:05)
[2019-01-09] MEDS: ASPIRIN 81 MG TABLET EC PO SCH (09:35)
[2019-01-09] MEDS: DOCUSATE 100 MG CAPSULE PO SCH ×2 (09:36→21:05)
[2019-01-09] MEDS: HEPARIN 5,000 UNITS/ML, 1ML SQ SCH ×2 (09:36→17:35)
[2019-01-09] MEDS: BUDESONIDE 0.5 MG/2 ML INHA NPPB SCH ×2 (09:54→21:30)
[2019-01-09 13:55] VITALS: BP 172/86
[2019-01-09 19:14] VITALS: BP 170/62
[2019-01-09] MEDS: ATORVASTATIN 40 MG TABLET PO SCH (21:05)
[2019-01-10] MEDS: HEPARIN 5,000 UNITS/ML, 1ML SQ SCH ×2 (01:48→08:53)
[2019-01-10 01:56] VITALS: BP 131/76
[2019-01-10] MEDS: ALBUTEROL SULFATE 2.5 MG/3 ML NPPB SCH ×3 (03:00→14:29)
[2019-01-10] MEDS: BUDESONIDE 0.5 MG/2 ML INHA NPPB SCH (08:13)
[2019-01-10] MEDS: ASPIRIN 81 MG TABLET EC PO SCH (08:52)
[2019-01-10] MEDS: DOCUSATE 100 MG CAPSULE PO SCH (08:52)
[2019-01-10] MEDS: AMLODIPINE 5 MG TABLET PO SCH (08:53)
[2019-01-10] MEDS: TAMSULOSIN 0.4 MG CAP.ER.24H PO SCH (08:53)
[2019-01-10 09:02] VITALS: BP 136/74
[2019-01-10] MEDS ORDERED: ATOR40TA78 PO (09:06)
[2019-01-10] MEDS ORDERED: ALBU2.5V NPPB (09:06)
[2019-01-10] MEDS ORDERED: BUDE0.5A NPPB (09:06)
[2019-01-10] MEDS ORDERED: HYDR-3341 PO (09:06)
[2019-01-10 09:54] VITALS: BP 136/74
[2019-01-10 14:42] VITALS: BP 153/78
== END 2019-01-10 16:55 | DRG 206 ==
LOC: ED 09:17 → EDIP 11:24 → 5SO 14:52 → 3N 01-09 17:20
PROVIDERS: ADMIT Internal Medicine; ATTEND Internal Medicine
PROC: 4B02XSZ Measurement of Cardiac Pacemaker, External Approach (ICD-10-PCS; principal; 2019-01-10)
DX: M94.0 Chondrocostal junction syndrome [Tietze] (principal); E46 Unspecified protein-calorie malnutrition; I27.20 Pulmonary hypertension, unspecified; I45.10 Unspecified right bundle-branch block; I10 Essential (primary) hypertension; J44.9 Chronic obstructive pulmonary disease, unspecified; Z60.2 Problems related to living alone; I25.10 Atherosclerotic heart disease of native coronary artery without angina pectoris; R91.1 Solitary pulmonary nodule; N40.1 Benign prostatic hyperplasia with lower urinary tract symptoms; R33.8 Other retention of urine; D17.9 Benign lipomatous neoplasm, unspecified; I70.0 Atherosclerosis of aorta; E86.0 Dehydration; F17.210 Nicotine dependence, cigarettes, uncomplicated; Z91.19 Patient's noncompliance with other medical treatment and regimen; Z95.0 Presence of cardiac pacemaker; Z82.5 Family history of asthma and other chronic lower respiratory diseases; Z83.3 Family history of diabetes mellitus; Z82.49 Family history of ischemic heart disease and other diseases of the circulatory system; Z59.0 Homelessness; Z79.82 Long term (current) use of aspirin; Z79.899 Other long term (current) drug therapy; Z68.21 Body mass index [BMI] 21.0-21.9, adult
CPT/HCPCS: 36415; 71045; 71275; 72141; 80048; 81001; 82040; 83735; 83880; 84100; 84443; 84484; 85025; 87086; 93005; 93306; 94640; 99285; G0378; J1644; J2405; J7613; J7626; Q9967; J2270; J7030

== ENCOUNTER → 2020-08-10 | Outpatient (CLI) | payer MEDICARE, MEDICAID ==
[~2020-08-10] MED LIST changes: +ALBU2.5V NPPB; -ASPI-515 PO; +ASPI-963 PO; +ATOR40TA78 PO; +BUDE0.5A NPPB; +HYDR-3341 PO; +REGADENOSON 0.4 MG/5 ML SYRINGE ONE; +SULF-23 PO; -SULF1TAB24 PO
== END | disposition home or self-care (01) ==
LOC: CFH 06:43
PROVIDERS: ATTEND Internal Medicine Cardiovascular Disease
DX: I08.3 Combined rheumatic disorders of mitral, aortic and tricuspid valves (principal); R94.31 Abnormal electrocardiogram [ECG] [EKG]; E78.5 Hyperlipidemia, unspecified; I11.9 Hypertensive heart disease without heart failure; F17.200 Nicotine dependence, unspecified, uncomplicated; Z95.0 Presence of cardiac pacemaker
CPT/HCPCS: 78452; 93017; 93306; A9502; J2785

== ENCOUNTER → 2020-09-06 | Outpatient (CLI) | payer MEDICARE, MEDICAID ==
[~2020-09-06] MED LIST changes: +OMNIPAQUE 350 MG/ML, 100ML BOTTLE ONE; -REGADENOSON 0.4 MG/5 ML SYRINGE ONE
== END | disposition home or self-care (01) ==
LOC: CFH 14:47
PROVIDERS: ATTEND Internal Medicine Cardiovascular Disease
DX: J43.2 Centrilobular emphysema (principal); I26.99 Other pulmonary embolism without acute cor pulmonale; R94.31 Abnormal electrocardiogram [ECG] [EKG]; R06.00 Dyspnea, unspecified
CPT/HCPCS: 71275; 82565; Q9967